=== PATIENT | female | born 1935 | race Caucasian/White ===

== ENCOUNTER 2019-12-08 09:41 | Inpatient (IN) | payer OTHER ==
[~2019-12-08] VITALS: Ht 152.4 cm; Wt 105.7 kg
[~2019-12-08 09:41] MED LIST: ATOXIMETIN-B1 CAP PO; B COMPLEX1 CAP PO; CELEBREX200 MG PO; COZAAR50 MG PO; HYDROCODONE-APA1 TA2 PO; K-Dur 20MEQ20 MEQ PO; LASIX40 MG PO; LIDODERM 5% PATC1 EA PO; LOPRESSOR50 MG PO; MAG-OX 400400 MG PO; METFORMIN HCL1000 MG PO; OMEPRAZOLE DR20 M1 PO
[2019-12-08 09:42] VITALS: BP 151/22
[2019-12-08 10:17] LABS: BASO % 0.6 % (0.0-1.0); EOS # 0.3 10*3/uL (0.0-0.4); EOS % 5.8 % (1.0-4.0); HEMATOCRIT 35.4 % (37.0-47.0); LYMPH # 1.3 10*3/uL (1.3-4.4); LYMPH % 25.3 % (27.0-41.0); MEAN CELL VOLUME 97.5 fl (81.0-99.0); MEAN CORPUSCULAR HGB 30.6 pg (27.0-31.0); MEAN CORPUSCULAR HGB CONC 31.4 g/dl (33.0-37.0); MEAN PLATELET VOLUME 10.7 fl (9.6-12.3); MONO # 0.4 10*3/uL (0.1-1.0); MONO % 8.6 % (3.0-9.0); NEUT % 59.3 % (47.0-73.0); PLATELET COUNT AUTOMATED 121 10*3/uL (130-400); RED BLOOD COUNT 3.63 10*6/uL (4.10-5.10); RED CELL DISTRI WIDTH 14.1 % (0-14.5); WHITE BLOOD COUNT 5.1 10*3/uL (4.8-10.8)
[2019-12-08 10:26] LABS: ALBUMIN 2.9 gm/dl (3.1-4.5); ALKALINE PHOSPHATASE 80 U/L (45-117); BUN 16 mg/dl (7-24); CHLORIDE 102 mmol/L (98-107); CREATININE 1.08 mg/dL (0.55-1.02); POTASSIUM 4.2 mmol/L (3.5-5.1); SGOT/AST 13 IU/L (3-35); SGPT/ALT 13 U/L (12-78); SODIUM 140 mmol/L (136-145); TOTAL PROTEIN 6.3 gm/dL (6.4-8.2)
[2019-12-08 10:27] LABS: TROPONIN I < 0.015 ng/ml (<0.045)
[2019-12-08 12:25] LABS: BACTERIA 2+; BILIRUBIN NEGATIVE (NEGATIVE); BLOOD TRACE-INTACT (NEGATIVE); CLARITY SL CLOUDY (CLEAR); COLOR YELLOW (YELLOW); GLUCOSE NEGATIVE (NEGATIVE); KETONE NEGATIVE (NEGATIVE); LEUKO ESTERASE NEGATIVE (NEGATIVE); NITRITE NEGATIVE (NEGATIVE); SPECIFIC GRAVITY 1.015 (1.005-1.030); UROBILINOGEN 0.2 E.U./dl (0.2-1.0)
[2019-12-08] MEDS ORDERED: BUSPAR5 MG PO (14:01)
[2019-12-08] MEDS ORDERED: CLOPIDOGREL75 MG PO (14:01)
[2019-12-08] MEDS ORDERED: MAGNESIUM400 MG PO (14:02)
[2019-12-08] MEDS ORDERED: TRAZODONE50 MG PO (14:02)
[2019-12-08] MEDS ORDERED: ALLOPURINOL300 MG PO (14:02)
[2019-12-08] MEDS ORDERED: LEVETIRACETAM500 MG PO (14:03)
[2019-12-08] MEDS ORDERED: NEURONTIN300 MG PO (14:04)
[2019-12-08] MEDS ORDERED: LIPITOR20 MG PO (14:04)
[2019-12-08 14:20] VITALS: BP 132/44
[2019-12-08 14:38] VITALS: BP 132/44
[2019-12-08 20:00] VITALS: BP 151/54
[2019-12-09] VITALS: BP 136/46
[2019-12-09 07:51] LABS: BASO % 0.3 % (0.0-1.0); EOS # 0.3 10*3/uL (0.0-0.4); EOS % 4.6 % (1.0-4.0); HEMATOCRIT 35.9 % (37.0-47.0); LYMPH # 1.5 10*3/uL (1.3-4.4); LYMPH % 23.9 % (27.0-41.0); MEAN CELL VOLUME 98.4 fl (81.0-99.0); MEAN CORPUSCULAR HGB 30.4 pg (27.0-31.0); MEAN CORPUSCULAR HGB CONC 30.9 g/dl (33.0-37.0); MEAN PLATELET VOLUME 10.3 fl (9.6-12.3); MONO # 0.7 10*3/uL (0.1-1.0); MONO % 11.1 % (3.0-9.0); NEUT # 3.7 10*3/uL (2.3-7.9); NEUT % 59.6 % (47.0-73.0); PLATELET COUNT AUTOMATED 111 10*3/uL (130-400); RED BLOOD COUNT 3.65 10*6/uL (4.10-5.10); RED CELL DISTRI WIDTH 13.9 % (0-14.5); WHITE BLOOD COUNT 6.3 10*3/uL (4.8-10.8)
[2019-12-09 08:00] VITALS: BP 115/51
[2019-12-09 08:03] LABS: ACT PARTIAL THROMBO TIME 25.8 SECONDS (20.0-32.1); INTERNATIONAL NORM RATIO 0.9 (2.0-3.5)
[2019-12-09 08:12] LABS: ALBUMIN 2.8 gm/dl (3.1-4.5); ALKALINE PHOSPHATASE 83 U/L (45-117); BUN 14 mg/dl (7-24); CHLORIDE 103 mmol/L (98-107); CHOLESTEROL 117 mg/dL (<200); CREATININE 0.97 mg/dL (0.55-1.02); HDL CHOLESTEROL 41 mg/dl (40-60); LDL CHOLESTEROL 55 mg/dL (9-159); SGOT/AST 15 IU/L (3-35); SGPT/ALT 14 U/L (12-78); SODIUM 141 mmol/L (136-145); TOTAL PROTEIN 6.2 gm/dL (6.4-8.2); TRIGLYCERIDES 105 mg/dl (<150); VLDL CHOLESTEROL 21 mg/dL (6-40)
[2019-12-09 10:10] LABS: VITAMIN D, 25-HYDROXY 19.2 ng/mL (30-100)
[2019-12-09 12:00] VITALS: BP 123/52
[2019-12-09 13:57] LABS: ABG BASE EXCESS 4.8 mmol/L (-2.0-2.0); ARTERIAL BLOOD GAS PH 7.331 (7.35-7.45)
[2019-12-09 16:00] VITALS: BP 115/58
[2019-12-09 19:36] LABS: ABG BASE EXCESS 5.8 mmol/L (-2.0-2.0); ARTERIAL BLOOD GAS PH 7.391 (7.35-7.45)
[2019-12-09 20:00] VITALS: BP 124/50
[2019-12-10] VITALS: BP 126/43
[2019-12-10 08:00] VITALS: BP 106/44
[2019-12-10 12:00] VITALS: BP 121/50
[2019-12-10 16:00] VITALS: BP 112/45
[2019-12-10 20:00] VITALS: BP 138/52
[2019-12-11] VITALS: BP 115/55
[2019-12-11 08:00] VITALS: BP 154/77
[2019-12-11 09:27] LABS: BASO % 0.4 % (0.0-1.0); EOS # 0.2 10*3/uL (0.0-0.4); EOS % 4.6 % (1.0-4.0); HEMATOCRIT 34.2 % (37.0-47.0); LYMPH % 19.4 % (27.0-41.0); MEAN CELL VOLUME 95.5 fl (81.0-99.0); MEAN CORPUSCULAR HGB 29.9 pg (27.0-31.0); MEAN CORPUSCULAR HGB CONC 31.3 g/dl (33.0-37.0); MEAN PLATELET VOLUME 11.3 fl (9.6-12.3); MONO # 0.5 10*3/uL (0.1-1.0); MONO % 9.1 % (3.0-9.0); NEUT # 3.3 10*3/uL (2.3-7.9); NEUT % 66.3 % (47.0-73.0); PLATELET COUNT AUTOMATED 113 10*3/uL (130-400); RED BLOOD COUNT 3.58 10*6/uL (4.10-5.10); RED CELL DISTRI WIDTH 14.1 % (0-14.5)
[2019-12-11 09:46] LABS: ALBUMIN 2.7 gm/dl (3.1-4.5); ALKALINE PHOSPHATASE 72 U/L (45-117); BUN 14 mg/dl (7-24); CHLORIDE 105 mmol/L (98-107); CREATININE 0.96 mg/dL (0.55-1.02); POTASSIUM 3.8 mmol/L (3.5-5.1); SGOT/AST 16 IU/L (3-35); SGPT/ALT 17 U/L (12-78); SODIUM 141 mmol/L (136-145); TOTAL PROTEIN 6.1 gm/dL (6.4-8.2)
[2019-12-11 12:00] VITALS: BP 113/69
[2019-12-11 16:00] VITALS: BP 132/80
[2019-12-11 20:00] VITALS: BP 149/64
[2019-12-12] VITALS: BP 142/51
[2019-12-12 08:00] VITALS: BP 136/54
[2019-12-12] MEDS ORDERED: VITAMIN D3125 MC1 PO (09:45)
== END 2019-12-12 11:35 | disposition home health service (06) | DRG 682 ==
LOC: ED 09:41 → 5E 13:14 → EDHOLD 13:14 → 5E 13:34
PROVIDERS: Internal Medicine; Internal Medicine Critical Care Medicine; Physician Assistant; Registered Nurse; ADMIT Internal Medicine
DX: N17.0 Acute kidney failure with tubular necrosis (principal); E43 Unspecified severe protein-calorie malnutrition; G93.41 Metabolic encephalopathy; E66.2 Morbid (severe) obesity with alveolar hypoventilation; E87.3 Alkalosis; Z68.42 Body mass index [BMI] 45.0-49.9, adult; E86.0 Dehydration; E83.42 Hypomagnesemia; E78.5 Hyperlipidemia, unspecified; M10.9 Gout, unspecified; K21.9 Gastro-esophageal reflux disease without esophagitis; I10 Essential (primary) hypertension; E11.65 Type 2 diabetes mellitus with hyperglycemia; M25.50 Pain in unspecified joint; F03.90 Unspecified dementia, unspecified severity, without behavioral disturbance, psychotic disturbance, mood disturbance, and anxiety; S00.03XA Contusion of scalp, initial encounter; R06.89 Other abnormalities of breathing; G40.909 Epilepsy, unspecified, not intractable, without status epilepticus; Z96.643 Presence of artificial hip joint, bilateral; F41.1 Generalized anxiety disorder; Z03.818 Encounter for observation for suspected exposure to other biological agents ruled out; W19.XXXA Unspecified fall, initial encounter; Y93.89 Activity, other specified; Y92.89 Other specified places as the place of occurrence of the external cause; Y99.8 Other external cause status; Z72.3 Lack of physical exercise; Z90.49 Acquired absence of other specified parts of digestive tract; Z88.1 Allergy status to other antibiotic agents; Z90.710 Acquired absence of both cervix and uterus; Z88.2 Allergy status to sulfonamides; Z79.84 Long term (current) use of oral hypoglycemic drugs; Z79.899 Other long term (current) drug therapy